=== PATIENT | male | born 1995 | race Caucasian/White ===

== ENCOUNTER 2017-02-22 10:07 | Emergency (ER) | payer OTHER ==
[2017-02-22 10:11] VITALS: TEMP 98.2; O2SAT 96
--- NOTE | 2017-02-22 10:41 | EDPHY ---
H & P Time Seen by Provider: 02/22/17 10:35 HPI/ROS: CHIEF COMPLAINT: Shortness of breath, hand paresthesias. HISTORY OF PRESENT ILLNESS: The patient is a 21-year-old male who presents after an episode of shortness of breath and hand paresthesias last night. He was studying for his finals at his desk when he suddenly felt short of breath. He then "woke up" in his chair a little while later and felt that he had passed out, but may have simply fell asleep. He laid in bed but had ongoing shortness of breath while lying flat. He also became diaphoretic and had paresthesias in both hands. He was using Adderall and a lot of caffeine and has not slept much in the past few nights. He denies sore throat, chest pain, fever, recent sickness, or other complaints at this time. He is concerned because of sick contact with his brothers who have had meningitis and mono. Exposure to meningitis 2 months ago, mono 1 month ago. He denies fever or URI symptoms. REVIEW OF SYSTEMS: A complete 10-point review of systems was performed and is negative except for those items mentioned in the HPI. Past Medical/Surgical History: Takes Adderall. Social History: Senior at . Smoking Status: Current some day smoker Physical Exam: General Appearance: Alert, pleasant Eyes: Pupils equal and round, no conjunctival pallor or injection ENT, Mouth: Mucous membranes moist Neck: Normal inspection Respiratory: Normal respiratory rate, Lungs are clear to auscultation Cardiovascular: Regular rate and rhythm, no murmur Gastrointestinal: Abdomen is soft and non-tender Neurological: A&O, nonfocal, normal gait Skin: Warm and dry, no rash Extremities: Nontender, no pedal edema, negative Homans sign Psychiatric: Anxious Constitutional: Initial Vital Signs Temperature (C) 36.8 C 02/22/17 10:10 Heart Rate 74 02/22/17 10:10 Respiratory Rate 18 02/22/17 10:10 Blood Pressure 145/93 H 02/22/17 10:10 O2 Sat (%) 96 02/22/17 10:10 O2 Delivery Mode Room Air Allergies/Adverse Reactions: No Known Allergies Allergy (Unverified 02/22/17 10:09) Home Medications: Medication Instructions Recorded Accutane 02/22/17 Medical Decision Making - Diagnostics EKG Interpretation: EKG interpreted by me reveals normal sinus rhythm, normal axis, normal intervals , ST and T segments normal. Interpretation: normal EKG ED Course/Re-evaluation: This patient presents after an episode of shortness of breath, associated with bilateral paresthesias and a feeling of anxiety. I suspect that the symptoms are related to Adderall use in combination with excessive caffeine and minimal sleep. This patient has a normal exam at this time, including normal vital signs, and his symptoms have resolved. We will check an ISTAT for possible electrolyte or blood sugar abnormalities. Stat EKG reveals no evidence of ischemia or dysrhythmia. I-STAT is normal. I feel that he is safe and stable for discharge. I have encouraged him to not use Adderall and caffeine together. Warning signs discussed. Differential Diagnosis: Differential diagnosis includes does not limited to dysrhythmia, hypoglycemia, pneumonia, pulmonary embolism, pneumothorax. Departure - Departure Disposition: Home, Routine, Self-Care Clinical Impression: Stimulant overuse , Anxiety Condition: Good Instructions: Anxiety (ED) Additional Instructions: Do not take Adderall and caffeine at the same time. Return for any serious worsening of condition. Referrals: [facility] ,. [Clinic] - Follow Up Only If Needed (On-campus medical provider. ) Stand Alone Forms: Statement of Treatment Report Scribed for: Catarina Slater Report Scribed by: Javed Yadav Date of Report: 02/22/17 Time of Report: 10:36 Physician Review and Approval Statement: 02/22/17 10:36 Portions of this note were transcribed by a remote medical coder. I personally performed a history, physical exam, medical decision making, and confirmed accuracy of information the transcribed note.
--- NOTE | 2017-02-22 11:32 | CPEKG ---
Heart Rate: 68 RR Interval: 882 P-R Interval: 124 QRSD Interval: 92 QT Interval: 392 QTC Interval: 417 P Bergland: 48 QRS Bergland: 68 T Wave Bergland: 13 EKG Severity - NORMAL ECG - EKG Impression: SINUS RHYTHM Electronically Signed By: Catarina Slater 22-Feb-2017 15:27:23
[2017-02-22 11:40] VITALS: BP 144/80; PULSE 81; RESP 16
== END 2017-02-22 11:39 | disposition home or self-care (01) ==
DX: F41.9 Anxiety disorder, unspecified (principal); F15.10 Other stimulant abuse, uncomplicated; F17.200 Nicotine dependence, unspecified, uncomplicated
CPT/HCPCS: 82947-QW